=== PATIENT | female | born 1935 | race Caucasian/White ===

== ENCOUNTER 2020-03-01 11:02 | Emergency (ER) | payer MEDICARE, OTHER ==
--- NOTE | 2020-03-01 11:45 | EDM.PDOC ---
ED HPI GENERAL MEDICAL PROBLEM - General Chief Complaint: Lower Extremity Injury/Pain Stated Complaint: RT FOOT PAIN Time Seen by Provider: 03/01/20 11:16 Source of Information: Reports: Patient History Limitations: Reports: No Limitations - History of Present Illness INITIAL COMMENTS - FREE TEXT/NARRATIVE: acute right heel pain today while walking. Moderate pain. Worse with wt bearing, better with rest. NSAIDs help. No injury. right pain Pain Score (Numeric/FACES): 8 - Related Data Allergies Allergy/AdvReac Type Severity Reaction Status Date / Time No Known Allergies Allergy Verified 03/01/20 11:19 Home Meds: Home Meds Sabin Carbonate 300 mg PO BID 03/01/20 [History] Simvastatin 20 mg PO DAILY 03/01/20 [History] Tolterodine [Detrol] 2 mg PO DAILY 03/01/20 [History] Past Medical History Cardiovascular History: Reports: High Cholesterol Genitourinary History: Reports: Urinary Incontinence Psychiatric History: Reports: Bipolar - Infectious Disease History Infectious Disease History: Reports: Chicken Pox, Measles - Past Surgical History Cardiovascular Surgical History: Reports: None GI Surgical History: Reports: Cholecystectomy Social & Family History - Tobacco Use Smoking Status *Q: Never Smoker - Recreational Drug Use Recreational Drug Use: No Review of Systems - Review of Systems Review Of Systems: See Below Constitutional: Reports: No Symptoms Musculoskeletal: Reports: Other (right heel pain. No back pain, No swelling) Neurological: Reports: No Symptoms ED EXAM, GENERAL - Physical Exam Exam: See Below Exam Limited By: No Limitations General Appearance: Alert, WD/WN, No Apparent Distress Extremities: Other (pain to touch right heel. ) Neurological: Alert, Oriented Psychiatric: Normal Affect Skin Exam: Warm, Dry Course - Vital Signs Last Recorded V/S: Last Vital Signs Temp 36.5 C 03/01/20 11:27 Pulse 58 L 03/01/20 11:27 Resp 14 03/01/20 11:27 BP 140/52 L 03/01/20 11:27 Pulse Ox 97 03/01/20 11:27 - Orders/Labs/Meds Orders: Active Orders 24 hr Category Date Time Status Foot 2V Rt [CR] Stat Exams 03/01/20 11:41 Taken Departure - Departure Time of Disposition: 12:15 Disposition: Home, Self-Care 01 Condition: Good Clinical Impression: Plantar fasciitis of right foot Clinical Impression: (Ruled Out): Closed traumatic dislocation of hip - Discharge Information *PRESCRIPTION DRUG MONITORING PROGRAM REVIEWED*: No *COPY OF PRESCRIPTION DRUG MONITORING REPORT IN PATIENT ILIANA: No Referrals: PCP,None [Primary Care Provider] - Forms: ED Department Discharge Additional Instructions: See a fruit harvester or orthopedist when you return home. Take Tylenol for pain. Buy a heel cushion and wear it in your right shoe. Sepsis Event Note (ED) - Evaluation Sepsis Screening Result: No Definite Risk - Focused Exam Vital Signs: Vital Signs Temp Pulse Resp BP Pulse Ox 03/01/20 11:27 36.5 C 58 L 14 140/52 L 97 03/01/20 11:25 36.1 C 53 L 12 140/52 L 97 - My Orders Last 24 Hours: My Active Orders 03/01/20 11:41 Foot 2V Rt [CR] Stat - Assessment/Plan Last 24 Hours: My Active Orders 03/01/20 11:41 Foot 2V Rt [CR] Stat
--- NOTE | 2020-03-03 09:14 | CR ---
FOOT RIGHT 3 views CLINICAL HISTORY:Pain, no trauma FINDINGS:There is osteoarthritis at the first MTP joint with hallux valgus. There are hammertoe deformities. There is spurring at the tarsal junctions. Patient has a calcaneal spur. Impression: Osteoarthritis Hallux valgus with hammertoe deformities. Calcaneal spur
== END 2020-03-01 12:40 | disposition home or self-care (01) ==
LOC: JP.ED 11:02
DX: M72.2 Plantar fascial fibromatosis (principal); E78.00 Pure hypercholesterolemia, unspecified; F31.9 Bipolar disorder, unspecified; Z79.899 Other long term (current) drug therapy
CPT/HCPCS: 73620-26-RT; 73620-RT; 99282; 99283